=== PATIENT | female | born 1940 | race Hispanic/Latino ===

== ENCOUNTER → 2021-06-28 | Outpatient (CLI) | payer MEDICARE, OTHER | LOC: MRI 08:39 | PROVIDERS: ATTEND Podiatrist Foot & Ankle Surgery | DX: D21.21 Benign neoplasm of connective and other soft tissue of right lower limb, including hip (principal) ==

== ENCOUNTER → 2021-08-07 | Outpatient (CLI) | payer MEDICARE, OTHER | LOC: MAMMO 09:03 | PROVIDERS: ATTEND Family Medicine | DX: Z12.31 Encounter for screening mammogram for malignant neoplasm of breast (principal); M81.8 Other osteoporosis without current pathological fracture; R06.02 Shortness of breath | CPT/HCPCS: 71046; 77067; 77080 ==

== ENCOUNTER → 2022-09-20 | Outpatient (CLI) | payer MEDICARE, OTHER | LOC: RAD 16:28 | PROVIDERS: ATTEND Family Medicine | DX: S09.92XA Unspecified injury of nose, initial encounter (principal); W19.XXXA Unspecified fall, initial encounter | CPT/HCPCS: 70160; 71046 ==

== ENCOUNTER → 2023-01-31 | Outpatient (REF) | payer MEDICARE, OTHER | LOC: MAMMO 13:28 | PROVIDERS: ATTEND Family Medicine | DX: N64.4 Mastodynia (principal) | CPT/HCPCS: 71046; 77066 ==